=== PATIENT | male | born 1945 | race Caucasian/White ===

== ENCOUNTER 2016-07-07 03:46 | Emergency (ER) | payer OTHER ==
[~2016-07-07] VITALS: Ht 170.2 cm; Wt 112.7 kg
[2016-07-07 04:10] LABS: POINT-OF-CARE METER ID UU13113778
[2016-07-07 05:24] LABS: ADD MIUA? NO; BILIRUBIN NEGATIVE; BLOOD NEGATIVE; COLOR YELLOW ((YELLOW)); GLUCOSE (STRIP) NEGATIVE; KETONES NEGATIVE; LEUKOCYTES NEGATIVE; NITRITE NEGATIVE; PROTEIN (STRIP) NEGATIVE; SPECIFIC GRAVITY 1.018 (1.000-1.030); UCUL ADDED? NO; UROBILINOGEN 0.2 MG/DL (0.2-1.0)
[2016-07-07 05:54] LABS: CHLORIDE 105 mEq/L (99-109); POTASSIUM 4.3 mEq/L (3.7-5.4); SODIUM 138 mEq/L (136-147)
[2016-07-07 05:56] LABS: GLUCOSE 143 mg/dL (70-99)
[2016-07-07 05:57] LABS: ANION GAP 12 MEQ/L (2-14)
[2016-07-07 05:59] LABS: GFR ESTIMATE (CALCULATED) > 59 mL/min/
[2016-07-07 06:00] LABS: UREA NITROGEN (BUN) 14 mg/dL (9-23)
[2016-07-07 06:02] LABS: CREATINE KINASE 323 IU/L (1-294); TOTAL CK 323 IU/L (1-294)
[2016-07-07] MEDS ORDERED: NAPROXEN500 MG PO (06:08)
[2016-07-07 06:09] LABS: CK-MB 3.2 ng/mL (0.0-4.9)
[2016-07-07 07:01] LABS: HEMATOCRIT 48.9 % (38.0-50.0); MCH 31.5 PG (29.0-34.0); MCHC 33.7 G/DL (30.0-36.0); MCV 93.3 FL (86-99); RBC DIS.WIDTH-CV 12.3 % (11.8-14.6); RBC DIS.WIDTH-SD 42.5 % (39-53); RED BLOOD COUNT 5.24 M/uL (4.00-5.50); WHITE BLOOD COUNT 5.5 K/uL (4.1-10.2)
[2016-07-07 07:15] VITALS: BP 148/83
[2016-07-07 21:57] LABS: MEAN PLAT.VOLUME 11.6 uM^3 (9.0-12.4)
== END 2016-07-07 07:16 | disposition home or self-care (01) ==
LOC: EME 03:46
PROVIDERS: Emergency Medicine
DX: M79.1 Myalgia (principal); E11.9 Type 2 diabetes mellitus without complications; Z86.79 Personal history of other diseases of the circulatory system; Z86.39 Personal history of other endocrine, nutritional and metabolic disease
CPT/HCPCS: 80048; 81003; 82550; 82553; 82948; 85027; 93005; 99281; 99284